=== PATIENT | male | born 1960 | race Two or more races ===

== ENCOUNTER 2017-07-19 18:56 | Emergency (ER) | payer OTHER ==
[2017-07-19] MEDS: KETOROLAC 60 MG INJ IM (19:28)
[2017-07-19] MEDS: morphine 4 MG/ML VIAL IM (19:28)
== END 2017-07-19 21:50 | disposition home or self-care (01) ==
LOC: E/R 18:56
DX: H60.92 Unspecified otitis externa, left ear (principal); I25.10 Atherosclerotic heart disease of native coronary artery without angina pectoris; I10 Essential (primary) hypertension; E11.9 Type 2 diabetes mellitus without complications; Z79.82 Long term (current) use of aspirin; Z79.84 Long term (current) use of oral hypoglycemic drugs
CPT/HCPCS: 82962; 96372; 99284-25

== ENCOUNTER 2017-07-20 11:26 | Emergency (ER) | payer OTHER ==
[2017-07-20] MEDS: LIDOCAINE 1% (MDV) 10 ML INJ INFIL (12:45)
[2017-07-20] MEDS: CEFTRIAXONE 1 GM INJ IM (12:45)
[2017-07-20] MEDS: KETOROLAC 60 MG INJ IM (12:45)
== END 2017-07-20 13:08 | disposition home or self-care (01) ==
LOC: FTE 11:26
DX: H92.02 Otalgia, left ear (principal); I10 Essential (primary) hypertension; E11.9 Type 2 diabetes mellitus without complications; Z79.82 Long term (current) use of aspirin
CPT/HCPCS: 96372; 99284-25

== ENCOUNTER 2017-07-22 11:51 | Emergency (ER) | payer OTHER ==
[2017-07-22] MEDS: KETOROLAC 30 MG INJ IM (12:48)
[2017-07-22] MEDS: HYDROCODONE/APAP (10/325) TAB PO ×2 (12:48→15:21)
[2017-07-22] MEDS: SOD CHLORIDE 0.9% 1,000 ML IV (13:48)
[2017-07-22 13:57] LABS: ADD MAN DIFF? NO
[2017-07-22 14:00] LABS: ABNORMAL IP MESSAGE 1; BASOPHIL # 0.1 10^3/ul (0.0-0.1); BASOPHILS % 0.6 % (0.0-2.0); EOSINOPHILS # 0.3 10^3/ul (0.0-0.5); EOSINOPHILS % 3.8 % (0.0-7.0); LYMPHOCYTES # 2.2 10^3/ul (0.8-2.9); LYMPHOCYTES % 26.9 % (15.0-51.0); MEAN CORPUSCULAR HEMOGLOBIN 18.4 pg (29.0-33.0); MEAN CORPUSCULAR VOLUME 61.3 fl (82.0-101.0); MONOCYTE # 0.7 10^3/ul (0.3-0.9); MONOCYTES % 8.2 % (0.0-11.0); NEUTROPHILS % 60.1 % (39.0-77.0); PLATELET COUNT 229 10^3/UL (140-415); POSITIVE DIFF @See below; RED BLOOD COUNT 6.53 10^6/ul (4.70-6.10); RED CELL DISTRIBUTION WIDTH 19.9 % (11.5-14.5)
[2017-07-22 14:00] LABS: WHITE BLOOD COUNT 8.2 10^3/ul (4.8-10.8)
[2017-07-22 14:20] LABS: ANION GAP 16 (8-16); BLOOD UREA NITROGEN 12 mg/dl (7-20); CALCIUM 9.5 mg/dl (8.4-10.2); CARBON DIOXIDE 25 mmol/L (21-31); CHLORIDE 106 mmol/L (97-110); CREATININE 1.04 mg/dl (0.61-1.24); GLUCOSE 145 mg/dl (70-220); SODIUM 142 mmol/L (135-144)
[2017-07-22 14:22] LABS: POTASSIUM 5.3 mmol/L (3.5-5.1)
== END 2017-07-22 15:55 | disposition home or self-care (01) ==
LOC: FTE 11:51
DX: H92.02 Otalgia, left ear (principal); I10 Essential (primary) hypertension; E11.9 Type 2 diabetes mellitus without complications; Z79.82 Long term (current) use of aspirin; Z79.84 Long term (current) use of oral hypoglycemic drugs
CPT/HCPCS: 36415; 70450; 80048; 85025; 96372; 99285-25

== ENCOUNTER 2017-07-26 10:55 | Emergency (ER) | payer OTHER ==
[2017-07-26] MEDS: KETOROLAC 30 MG INJ IM (11:23)
== END 2017-07-26 12:15 | disposition home or self-care (01) ==
LOC: FTE 10:55
DX: H60.502 Unspecified acute noninfective otitis externa, left ear (principal); T16.2XXA Foreign body in left ear, initial encounter; I10 Essential (primary) hypertension; E11.9 Type 2 diabetes mellitus without complications; X58.XXXA Exposure to other specified factors, initial encounter; Y92.9 Unspecified place or not applicable; Z79.82 Long term (current) use of aspirin; Z79.84 Long term (current) use of oral hypoglycemic drugs
CPT/HCPCS: 96372; 99284-25

== ENCOUNTER 2017-08-28 13:24 | Observation (INO) | payer OTHER ==
[2017-08-28] MEDS: ASPIRIN 81 MG TAB PO (14:00)
[2017-08-28] MEDS ORDERED: NITROGLYCERIN (SL) 0.4 MG TAB SL (14:00)
[2017-08-28] MEDS: NITROGLYCERIN 2% 1 GM OINT PKT TD (14:01)
[2017-08-28 14:27] LABS: ADD MAN DIFF? NO
[2017-08-28 14:33] LABS: ABNORMAL IP MESSAGE 1; BASOPHIL # 0.1 10^3/ul (0.0-0.1); BASOPHILS % 0.7 % (0.0-2.0); EOSINOPHILS # 0.3 10^3/ul (0.0-0.5); EOSINOPHILS % 3.4 % (0.0-7.0); HEMATOCRIT 36.1 % (42.0-52.0); HEMOGLOBIN 10.8 g/dl (14.0-18.0); LYMPHOCYTES # 1.9 10^3/ul (0.8-2.9); LYMPHOCYTES % 22.9 % (15.0-51.0); MEAN CORPUSCULAR HEMOGLOBIN 18.2 pg (29.0-33.0); MEAN CORPUSCULAR HGB CONC 29.9 g/dl (32.0-37.0); MEAN CORPUSCULAR VOLUME 60.7 fl (82.0-101.0); MONOCYTE # 0.7 10^3/ul (0.3-0.9); MONOCYTES % 8.1 % (0.0-11.0); NEUTROPHIL # 5.3 10^3/ul (1.6-7.5); NEUTROPHILS % 64.5 % (39.0-77.0); PLATELET COUNT 186 10^3/UL (140-415); POSITIVE DIFF @See below; RED BLOOD COUNT 5.95 10^6/ul (4.70-6.10); RED CELL DISTRIBUTION WIDTH 18.8 % (11.5-14.5)
[2017-08-28 14:33] LABS: WHITE BLOOD COUNT 8.2 10^3/ul (4.8-10.8)
[2017-08-28] MEDS: morphine 4 MG/ML VIAL IV (14:39)
[2017-08-28] MEDS: ONDANSETRON 4 MG INJ IV (14:39)
[2017-08-28 14:52] LABS: ANION GAP 13 (8-16); BLOOD UREA NITROGEN 17 mg/dl (7-20); CALCIUM 9.3 mg/dl (8.4-10.2); CARBON DIOXIDE 28 mmol/L (21-31); CHLORIDE 105 mmol/L (97-110); CREATININE 0.99 mg/dl (0.61-1.24); GLUCOSE 260 mg/dl (70-220); POTASSIUM 4.9 mmol/L (3.5-5.1); SODIUM 141 mmol/L (135-144)
[2017-08-28 15:11] LABS: TROPONIN-I < 0.012 ng/ml (0.000-0.120)
[2017-08-28] MEDS ORDERED: ACETAMINOPHEN 325 MG TAB PO ×2 (15:30)
[2017-08-28] MEDS ORDERED: ONDANSETRON 4 MG TAB PO (15:30)
[2017-08-28] MEDS ORDERED: HYDROCODONE/APAP (5/325) TAB PO (15:30)
[2017-08-28] MEDS ORDERED: ONDANSETRON 4 MG INJ IV ×2 (15:30)
[2017-08-28] MEDS ORDERED: NACL 0.9% 3 ML SYG IV (15:30)
[2017-08-28] MEDS ORDERED: GLUCOSE GEL 15 GRAM TUBE BUCCAL (16:00)
[2017-08-28] MEDS ORDERED: GLUCAGON 1 MG INJ IM (16:00)
[2017-08-28] MEDS ORDERED: GLUCOSE GEL 15 GRAM TUBE PO ×2 (16:00)
[2017-08-28] MEDS ORDERED: DEXTROSE 50% 50 ML SYRINGE IV ×2 (16:00)
[2017-08-28] MEDS: INSULIN ASPART [NOVOLOG] 3 ML PEN SC ×2 (17:55→21:00)
[2017-08-28 20:51] LABS: CREATINE KINASE 41 IU/L (23-200)
[2017-08-28] MEDS: INSULIN GLARGINE [LANtus] 3 ML PEN SC (21:00)
[2017-08-28 21:04] LABS: CK INDEX 1.3
[2017-08-28 21:05] LABS: CK-MB 0.55 ng/ml (0.0-2.4); TROPONIN-I < 0.012 ng/ml (0.000-0.120)
[2017-08-28] MEDS: GABAPENTIN 300 MG CAP PO (21:05)
[2017-08-29 02:27] LABS: ADD MAN DIFF? NO
[2017-08-29 02:30] LABS: WHITE BLOOD COUNT 8.8 10^3/ul (4.8-10.8)
[2017-08-29 02:30] LABS: ABNORMAL IP MESSAGE 1; BASOPHIL # 0.1 10^3/ul (0.0-0.1); BASOPHILS % 0.6 % (0.0-2.0); EOSINOPHILS # 0.3 10^3/ul (0.0-0.5); EOSINOPHILS % 3.4 % (0.0-7.0); HEMATOCRIT 35.7 % (42.0-52.0); HEMOGLOBIN 10.7 g/dl (14.0-18.0); LYMPHOCYTES # 2.6 10^3/ul (0.8-2.9); LYMPHOCYTES % 29.6 % (15.0-51.0); MEAN CORPUSCULAR HEMOGLOBIN 18.2 pg (29.0-33.0); MEAN CORPUSCULAR VOLUME 60.7 fl (82.0-101.0); MONOCYTE # 0.7 10^3/ul (0.3-0.9); MONOCYTES % 7.8 % (0.0-11.0); NEUTROPHIL # 5.2 10^3/ul (1.6-7.5); NEUTROPHILS % 58.3 % (39.0-77.0); PLATELET COUNT 184 10^3/UL (140-415); POSITIVE DIFF @See below; RED BLOOD COUNT 5.88 10^6/ul (4.70-6.10); RED CELL DISTRIBUTION WIDTH 18.8 % (11.5-14.5)
[2017-08-29 02:51] LABS: HEMOGLOBIN A1C 9.6 % (0-5.9)
[2017-08-29 02:57] LABS: ANION GAP 13 (8-16); BLOOD UREA NITROGEN 16 mg/dl (7-20); CALCIUM 9.1 mg/dl (8.4-10.2); CARBON DIOXIDE 29 mmol/L (21-31); CHLORIDE 106 mmol/L (97-110); CHOL/HDL RATIO 3.1 RATIO; CHOLESTEROL 95 mg/dl (100-200); CREATINE KINASE 34 IU/L (23-200); CREATININE 0.95 mg/dl (0.61-1.24); GLUCOSE 220 mg/dl (70-220); HDL CHOLESTEROL 30 mg/dl (28-71); LDL CHOLESTEROL,CALCULATED 40 mg/dl; POTASSIUM 4.7 mmol/L (3.5-5.1); SODIUM 143 mmol/L (135-144); TRIGLYCERIDES 125 mg/dl (0-149)
[2017-08-29] MEDS: ACCU-CHEK XX (02:58)
[2017-08-29 03:07] LABS: CK INDEX 1.9
[2017-08-29 03:13] LABS: CK-MB 0.63 ng/ml (0.0-2.4); TROPONIN-I < 0.012 ng/ml (0.000-0.120)
[2017-08-29] MEDS: INSULIN ASPART [NOVOLOG] 3 ML PEN SC ×2 (07:55→11:50)
[2017-08-29] MEDS: INSULIN GLARGINE [LANtus] 3 ML PEN SC (08:03)
[2017-08-29] MEDS: GABAPENTIN 300 MG CAP PO (08:14)
[2017-08-29] MEDS: ISOSORBIDE MONONITRATE 20 MG TAB PO (08:14)
[2017-08-29] MEDS: HYDROCHLOROTHIAZIDE 25 MG TAB PO (08:14)
[2017-08-29] MEDS: ASPIRIN (EC) 81 MG TAB PO (08:15)
[2017-08-29] MEDS: ENOXAPARIN 40 MG/0.4 ML SYG SC (08:15)
[2017-08-29] MEDS: METOPROLOL (XL) 100 MG TAB PO (08:15)
[2017-08-29] MEDS: AMLODIPINE 10 MG TAB PO (08:15)
[2017-08-29] MEDS: REGADENOSON 0.4 MG/5 ML SYG (11:45)
[2017-08-29] MEDS: METOPROLOL (XL) 50 MG TAB PO (13:49)
[2017-08-30] MEDS ORDERED: ISOSORBIDE MONONITRATE(SR)30 MG TAB PO (09:00)
[2017-08-30] MEDS ORDERED: METOPROLOL (XL) 50 MG TAB PO (09:00)
== END 2017-08-29 15:30 | disposition home or self-care (01) ==
LOC: E/R 13:24 → TEL 15:23
DX: R07.9 Chest pain, unspecified (principal); I25.10 Atherosclerotic heart disease of native coronary artery without angina pectoris; Z95.1 Presence of aortocoronary bypass graft; I10 Essential (primary) hypertension; E78.5 Hyperlipidemia, unspecified; E11.9 Type 2 diabetes mellitus without complications; Z79.4 Long term (current) use of insulin; Z79.82 Long term (current) use of aspirin; Z82.49 Family history of ischemic heart disease and other diseases of the circulatory system
CPT/HCPCS: 36415; 71045; 78452; 80048; 80061; 82550; 82553; 82962; 83036; 84484; 85025; 93005; 93017; 93306; 96374; 96375; 99285-25; G0378